=== PATIENT | female | born 1980 | race Caucasian/White ===

== ENCOUNTER 2018-07-27 22:19 | Emergency (ER) | payer MEDICAID ==
[~2018-07-27] VITALS: Ht 160 cm; Wt 76.3 kg
[2018-07-27 23:51] VITALS: BP 128/84
== END 2018-07-27 23:53 | disposition home or self-care (01) ==
LOC: ED 22:47
DX: L03.116 Cellulitis of left lower limb (principal); K61.1 Rectal abscess; F17.210 Nicotine dependence, cigarettes, uncomplicated
CPT/HCPCS: 99283

== ENCOUNTER 2018-09-15 05:36 | Emergency (ER) | payer SELFPAY ==
[~2018-09-15] VITALS: Ht 170.2 cm; Wt 74.5 kg
[2018-09-15 05:38] VITALS: BP 136/86
== END 2018-09-15 05:59 | disposition home or self-care (01) ==
LOC: ED 05:50
DX: K12.0 Recurrent oral aphthae (principal); Z98.890 Other specified postprocedural states
CPT/HCPCS: 99283

== ENCOUNTER 2018-10-24 01:52 | Emergency (ER) | payer MEDICAID, OTHER ==
[~2018-10-24] VITALS: Ht 160 cm; Wt 73.4 kg
[2018-10-24 01:55] VITALS: BP 132/83
[2018-10-24] MEDS ORDERED: SULFAMETH./TRIMETHOPRIM DS 800MG/160MG TABLET PO ONE (02:30)
[2018-10-24] MEDS ORDERED: CEPHALEXIN 500 MG CAPSULE PO ONE (02:30)
--- NOTE | 2018-10-24 02:30 | NUR ---
PT HERE FOR 'BUG BITE' ON BACK OF L KNEE, NO DISCHARGE NOTED
[2018-10-24] MEDS ORDERED: CEPHALEXIN 500 MG CAPSULE ONE (02:34)
[2018-10-24] MEDS ORDERED: SULFAMETH./TRIMETHOPRIM DS 800MG/160MG TABLET ONE (02:34)
--- NOTE | 2018-10-24 02:49 | NUR ---
Patient/Caregiver given discharge instructions and they have confirmed that they understand the instructions. Patient ambulatory with steady gait.
== END 2018-10-24 02:52 | disposition home or self-care (01) ==
LOC: ED 02:44
DX: L03.115 Cellulitis of right lower limb (principal)
CPT/HCPCS: 99283

== ENCOUNTER 2020-08-18 21:13 | Emergency (ER) | payer MEDICAID ==
[~2020-08-18] VITALS: Ht 165.1 cm; Wt 71.6 kg
[2020-08-18 21:41] VITALS: BP 139/79
--- NOTE | 2020-08-18 22:09 | NUR ---
ERMD AT BEDSIDE FOR EVALUATION.
--- NOTE | 2020-08-18 22:09 | NUR ---
PATIENT WALKED BACK FROM TRIAGE WITH CHIEF C/O RIGHT SHOULDER PAIN. PER PATIENT PAIN HAS BEEN ONGOING FOR A FEW MONTHS. PATIENT HAS BEEN SEEN FOR SAME ISSUE, NO IMAGING DONE PREVIOUSLY, MEDICATIONS PRESCRIBED NOT WORKING FOR PATIENT. NADN, ACCOMPANIED BY SIGNIFICANT OTHER. CALL LIGHT WITHIN REACH.
--- NOTE | 2020-08-18 22:49 | NUR ---
ERMD AT BEDSIDE TO DISCUSS POC.
--- NOTE | 2020-08-18 23:07 | NUR ---
Patient given discharge instructions and they have confirmed that they understand the instructions. Patient stable and ambulatory with steady gait from ED with friend to private vehicle.
== END 2020-08-18 23:08 | disposition home or self-care (01) ==
LOC: ED 22:00
DX: M25.511 Pain in right shoulder (principal); F17.200 Nicotine dependence, unspecified, uncomplicated
CPT/HCPCS: 99283